=== PATIENT | male | born 1985 | race Caucasian/White ===

== ENCOUNTER 2017-04-20 01:45 | Emergency (ER) | payer BC ==
[~2017-04-20] VITALS: Ht 180.3 cm; Wt 72.6 kg
[2017-04-20] MEDS ORDERED: VITAMINS (01:54)
--- NOTE | 2017-04-20 02:14 | Emergency Room Report ---
History of Present Illness General Chief Complaint: Laceration Source: Patient Present Illness HPI Is a 31-year-old male with no significant past medical history. He presents with chief complaint of laceration to his face. He was taking a drinking glass to the kitchen. He tripped over the dog the door and his face and on the glass. Sustained laceration to the right side of his face. No loss of consciousness. No other injury. It is 7/10. Bleeding is controlled. Allergies: Coded Allergies: No Known Allergies (Unverified , 04/20/17) Patient History Past Medical History: see triage record, old chart reviewed Past Surgical History: other Pertinent Family History: none Social History: Denies: smoking Immunizations: other Reviewed Nursing Documentation: PMH: Agreed, PSxH: Agreed Nursing Documentation-PMH Past Medical History: No Stated History Review of Systems Eye: Denies: eye pain, blurred vision ENT: Denies: ear pain, nose congestion, throat swelling Respiratory: Denies: cough, shortness of breath Cardiovascular: Denies: chest pain, palpitations Gastrointestinal: Denies: abdominal pain, diarrhea, nausea, vomiting Musculoskeletal: Denies: back pain, joint pain Skin: Denies: rash Neurological: Denies: headache, numbness Endocrine: Denies: increased thirst, increased urine Hematologic/Lymphatic: Denies: easy bruising All Other Systems: negative except mentioned in HPI Physical Exam Vital Signs Date Time Temp Pulse Resp B/P (MAP) Pulse Ox O2 Delivery O2 Flow Rate FiO2 04/20/17 01:49 96.1 45 16 103/65 100 Room Air vitals with bradycardia Sp02 EP Interpretation: reviewed, normal General Appearance: well appearing, no apparent distress, alert Head: normocephalic, atraumatic Eyes: bilateral eye PERRL, bilateral eye EOMI ENT: hearing grossly normal, normal pharynx, other - He has several lacerations to his right face. Not through and through. No FB. Neck: full range of motion, supple, no meningismus Respiratory: chest non-tender, lungs clear, normal breath sounds Cardiovascular #1: regular rate, rhythm, no murmur Gastrointestinal: normal bowel sounds, non tender, no mass, no organomegaly, no bruit, non-distended Musculoskeletal: back normal, gait/station normal, normal range of motion Psychiatric: mood/affect normal Skin: warm/dry Procedures Laceration/Wound Repair Laceration/Wound Repair : Consent: Verbal Wound Location: face Wound's Depth, Shape: irregular, flap, stellate Wound Length (cm): 20 Wound Explored: foreign body removed Irrigated w/ Saline (ccs): 1000 Betadine Prep?: Yes Anesthesia: 1% Lidocaine Volume Anesthetic (ccs): 12 Wound Repaired With: sutures Suture Size/Type: 6:0, proline Number of Sutures: 29 Layer Closure?: No Patient Tolerated: Well Complications: None Progress Patient has multiple laceration to his right side of his face and chin. Right upper eyelid: 2 cm laceration. Not through and through. 4 sutures. Right upper cheek: Y-shaped laceration. 5 cm. There was a sliver of ceramic foreign body. It was removed. A total of 9 sutures placed. Nose: There is a 2 cm over the right bridge of the nose. Her sutures placed. Right mid cheek: 3 cm laceration. 5 sutures placed Right lower cheek: 1 cm vertical laceration. 2 suture placed. Right upper lip: 1.5 cm laceration. 3 sutures placed Chin: 1 cm laceration. 2 sutures placed Pt tolerated procedure without a problem. Medical Decision Making Diagnostic Impression: Primary Impression: Face lacerations Qualified Codes: S01.81XA - Laceration without foreign body of other part of head, initial encounter ER Course Patient presents with multiple laceration to the face. There was one small foreign body that was removed. This does increase his risk for infection. Also explained to the patient about scarring. This can be revised with plastic surgeon later. No other injury. We'll discharge home. Last Vital Signs Date Time Temp Pulse Resp B/P (MAP) Pulse Ox O2 Delivery O2 Flow Rate FiO2 04/20/17 01:49 96.1 45 16 103/65 100 Room Air Status: improved Disposition: HOME, SELF-CARE Condition: Stable Scripts Ibuprofen* (MOTRIN*) 600 Mg Tablet 600 MG ORAL Q8H Y for For Pain, #30 TAB 0 Refills Prov: KATIE CALDWELL M.D. 04/20/17 Cephalexin* (KEFLEX*) 500 Mg Capsule 500 MG ORAL TID, #21 CAP 0 Refills Prov: KATIE CALDWELL M.D. 04/20/17 Patient Instructions: Facial Laceration Additional Instructions: Followup with your Dr. in 5-7 days. Keep wound clean. Sutures out in 5-7 days. Return if worse. KATIE CALDWELL M.D. Apr 20, 2017 02:14
[2017-04-20] MEDS ORDERED: KEFLEX500 MG ORAL (03:46)
[2017-04-20] MEDS ORDERED: IBUPROFEN600 MG ORAL (03:46)
[2017-04-20] MEDS: Bacitracin Oint UD TOPIC ONE (03:48)
[2017-04-20 03:59] VITALS: BP 112/66
[2017-04-20 04:00] VITALS: BP 112/66
== END 2017-04-20 04:00 | disposition home or self-care (01) ==
LOC: EMR 02:05
DX: S01.81XA Laceration without foreign body of other part of head, initial encounter (principal); S01.111A Laceration without foreign body of right eyelid and periocular area, initial encounter; S01.411A Laceration without foreign body of right cheek and temporomandibular area, initial encounter; S01.21XA Laceration without foreign body of nose, initial encounter; S01.511A Laceration without foreign body of lip, initial encounter; W01.110A Fall on same level from slipping, tripping and stumbling with subsequent striking against sharp glass, initial encounter; Y92.000 Kitchen of unspecified non-institutional (private) residence as the place of occurrence of the external cause
CPT/HCPCS: 99284

== ENCOUNTER 2017-04-23 16:56 | Emergency (ER) | payer BC ==
[~2017-04-23] VITALS: Ht 180.3 cm; Wt 72.6 kg
[~2017-04-23 16:56] MED LIST: IBUPROFEN600 MG ORAL; KEFLEX500 MG ORAL; VITAMINS
--- NOTE | 2017-04-23 17:22 | Emergency Room Report ---
History of Present Illness General Chief Complaint: Wound Recheck/Suture Removal Source: Patient Present Illness HPI 31 YO Male presents to the ED for suture removal. pt. was seen in the ED 4 days ago for facial lacerations, and told to return for suture removal in 4-5 days. pt. and significant other are worried about "suture rail-road track lynn" if the sutures remain too long. denies bleeding, erythema. reports resolving swelling and bruising. has been applying Vaseline jelly regularly. denies fevers , chills, dizziness, or new trauma or fall. pt. is UTD with vaccinations. PT. reports he has contacted several plastic surgeons but was told to be evaluated after suture removal. Allergies: Coded Allergies: No Known Allergies (Unverified , 04/20/17) Patient History Past Medical History: see triage record Past Surgical History: none Pertinent Family History: none Immunizations: UTD Reviewed Nursing Documentation: PMH: Agreed, PSxH: Agreed Nursing Documentation-PMH Hx Cardiac Problems: Yes - Heart murmur as Review of Systems All Other Systems: negative except mentioned in HPI Physical Exam Vital Signs Date Time Temp Pulse Resp B/P (MAP) Pulse Ox O2 Delivery O2 Flow Rate FiO2 04/23/17 17:03 97.5 46 16 130/71 97 Room Air Sp02 EP Interpretation: reviewed, normal General Appearance: no apparent distress, alert, GCS 15, non-toxic Head: normocephalic, atraumatic Eyes: bilateral eye normal inspection, bilateral eye PERRL ENT: hearing grossly normal, normal voice Neck: full range of motion Respiratory: speaking full sentences Musculoskeletal: back normal, gait/station normal, normal range of motion Neurologic: alert, oriented x3, responsive, motor strength/tone normal, sensory intact, normal gait, speech normal Skin: no rash, warm/dry, well hydrated, wd healing/no infection noted - multiple facial lacerations of the right cheek, nasal bridge, chin and right eyelid with no obvious evidence of infection Medical Decision Making PA Attestation Dr. quezada is my supervising Physician whom patient management has been discussed with. Diagnostic Impression: Primary Impression: Encounter for removal of sutures ER Course Pt. presents to the ED for suture removal. pt. was seen in the ED 4 days ago for facial lacerations, and told to return for suture removal in 4-5 days. pt. and significant other are worried about "suture rail-road track lynn" if the sutures remain too long. denies bleeding, erythema. reports resolving swelling and bruising. has been applying Vaseline jelly regularly. denies fevers, chills , dizziness, or new trauma or fall. pt. is UTD with vaccinations. PT. reports he has contacted several plastic surgeons but was told to be evaluated after suture removal. Ddx considered but are not limited to laceration, tendon injury, cellulitis, dehiscence. Vital signs: are WNL, pt. is afebrile H&PE are most consistent with: healed lacerations of the face, no evidence of infection. mild dehiscence of the chin laceration which appears to be a repaired stellate flap. ORDERS: none required at this time, the diagnosis is clinical ED INTERVENTIONS: - 29 Sutures removed. - d/w pt. and significant other that extend of scaring is unknown at this time, recommended plastic surgeon evaluation for concerns regarding scaring and scar revisions if needed. will provided Dr. Moses Tolliver ( plastics) referral . will also d/c with rx for Mederma. DISCHARGE: At this time pt. is stable for d/c to home. Will provide printed patient care instructions, and any necessary prescriptions. Care plan and follow up instructions have been discussed with the patient prior to discharge. Last Vital Signs Date Time Temp Pulse Resp B/P (MAP) Pulse Ox O2 Delivery O2 Flow Rate FiO2 04/23/17 17:03 97.5 46 16 130/71 97 Room Air Disposition: HOME, SELF-CARE Condition: Stable Scripts Emollient Combination No.46 (MEDERMA) 20 Gm Cream..g. 1 APPLIC TP TID, #20 GM 4 Refills Prov: Marilynn Ha 04/23/17 Patient Instructions: Wound Closure Removal Additional Instructions: Take medications as directed. Follow up with a Primary Care Provider in 3-5 days, even if your symptoms have resolved. --Please review list of primary care clinics, if you do not already have a primary care provider Return sooner to ED if new symptoms occur, or current symptoms become worse. - Please note that this Emergency Department Report was dictated using [email or web address] inserting machine adjuster technology software, occasionally this can lead to erroneous entry secondary to interpretation by the dictation equipment. Marilynn Ha Apr 23, 2017 17:22
[2017-04-23] MEDS ORDERED: MEDERMA20 GM TP (17:40)
[2017-04-23 18:16] VITALS: BP 130/71
[2017-04-23 18:17] VITALS: BP 130/71
== END 2017-04-23 19:12 | disposition home or self-care (01) ==
LOC: EMR 17:20
DX: S01.81XD Laceration without foreign body of other part of head, subsequent encounter (principal); Z48.02 Encounter for removal of sutures; R01.1 Cardiac murmur, unspecified
CPT/HCPCS: 99283